=== PATIENT | female | born 1980 | race Caucasian/White ===

== ENCOUNTER 2017-01-18 13:43 | Emergency (ER) | payer OTHER ==
[~2017-01-18] VITALS: Ht 144.8 cm; Wt 63.7 kg
[2017-01-18] MEDS ORDERED: EPIPEN ADU0.3 MG/0.3 IM (14:15)
[2017-01-18 17:37] VITALS: BP 133/93
== END 2017-01-18 17:42 | disposition home or self-care (01) ==
LOC: EME 13:43
DX: T78.1XXA Other adverse food reactions, not elsewhere classified, initial encounter (principal); Z91.018 Allergy to other foods; Z91.010 Allergy to peanuts
CPT/HCPCS: 99281; 99284; J1200; J7512